=== PATIENT | female | born 1940 | race Two or more races ===

== ENCOUNTER 2018-04-18 09:06 | Outpatient (CLI) | payer MEDICARE, OTHER ==
[~2018-04-18] VITALS: Ht 149.9 cm; Wt 60.8 kg
[~2018-04-18 09:06] MED LIST: ANTIVERT25 MG ORAL; ATORVASTATIN CA10 MG ORAL; GLUCOPHAGE500 MG ORAL; METFORMIN HCL500 M1 PO
[2018-04-18 09:19] VITALS: BP 125/58
[2018-04-18] MEDS ORDERED: depression med (09:26)
[2018-04-18] MEDS ORDERED: [UNRECOGNIZED DRUG - REMARK] (09:26)
--- NOTE | 2018-04-18 16:58 | GI Progress Note ---
Assessment/Plan Problems: (1) Colonoscopy planned SNOMED: [id number] Status: stable Status Narrative Seen with Dr. Segura. Assessment/Plan Colonoscopy scheduled for 04/21/18. - CLD & (Nulytely/Suprep/Movi-Prep) prep instructions given and acknowledged by patient. - NPO @ [place] day prior procedure explained. The patient was seen and examined at bedside and all new and available data was reviewed in the patients chart. I agree with the above findings, impression and plan. (Patient seen earlier today. Signature stamp does not reflect patient encounter time.). - Tone Segura MD Subjective Gastrointestinal/Abdominal: Reports: no symptoms Subjective vertigo 1 month ago, currently taking 2 meds last colonoscopy 2012 - negative findings Objective Last 24 Hour Vital Signs Date Time Temp Pulse Resp B/P (MAP) Pulse Ox O2 Delivery O2 Flow Rate FiO2 04/18/18 09:19 97.8 61 16 125/58 98 97.8 General Appearance: WD/WN, no apparent distress, alert Cardiovascular: normal rate Respiratory/Chest: normal breath sounds, no respiratory distress Abdominal Exam: normal bowel sounds, non tender, soft Extremities: normal range of motion, non-tender Lionel Gaxiola [employer] Apr 18, 2018 16:58
--- NOTE | 2018-04-20 16:22 | GI Initial Consult Note ---
History of Present Illness General Date patient seen: Apr 18, 2018 Time patient seen: 10:00 Reason for Consultation: Colonoscopy Present Illness HPI 77 year of female patient presents today for routine colonoscopy screening. Her last colonoscopy was performed in 2012 with negative findings. The patient has a history of diabetes and vertigo, last episode that occurred approximately 1 month ago in which she was prescribed meclizine. Surgical history of bunionectomy. She denies any other major medical condition. No abdominal pain , constipation or N/V/D. Denies any unintentional weight loss or changes in dietary habits. No signs of abuse or neglect. Patient is not fall risk. Home Meds Reported Medications [depression med ] No Conflict Check 04/18/18 [diziness meds x2 ] No Conflict Check 04/18/18 Metformin Hcl* (METFORMIN HCL*) 500 Mg Tablet, 500 MG PO DAILY, #90 01/03/15 Atorvastatin Calcium* (LIPITOR*) 10 Mg Tablet, 10 MG ORAL 3XW 03/12/13 Discontinued Reported Medications Meclizine Hcl* (ANTIVERT*) 25 Mg Tablet, 25 MG ORAL Q6HR PRN for for dizziness, TAB 01/06/15 Med list reviewed/reconciled: Yes Allergies: Coded Allergies: COCONUT OIL (Unverified Allergy, Intermediate, Rash, 01/04/15) EGG (Unverified Allergy, Intermediate, Rash, 01/04/15) PENICILLINS (Verified Allergy, Intermediate, rash, 03/12/13) Nut Tree (Unverified Allergy, Mild, Rash, 01/04/15) Patient History History Provided By: Patient, Medical Record PMH Narrative See HPI. Pertinent Family History: none Social History: Denies: smoking, alcohol use, drug use, other Review of Systems All Other Systems: negative except mentioned in HPI Physical Exam Vital Signs Date Time Temp Pulse Resp B/P (MAP) Pulse Ox O2 Delivery O2 Flow Rate FiO2 04/18/18 09:19 97.8 61 16 125/58 98 97.8 Sp02 EP Interpretation: reviewed, normal General Appearance: well appearing, no apparent distress, alert Head: normocephalic EENT: PERRL/EOMI, normal ENT inspection Neck: supple Respiratory: normal breath sounds, no respiratory distress Cardiovascular: normal rate Gastrointestinal: normal inspection, non tender, soft, normal bowel sounds, non -distended Rectal: deferred Genitourinary: no CVA tenderness Musculoskeletal: normal inspection, back normal Neurologic: normal inspection, alert, oriented x3, responsive Psychiatric: normal inspection, judgement/insight normal, memory normal Skin: normal inspection, normal color, no rash, warm/dry, palpation normal, well hydrated Lymphatic: normal inspection, no adenopathy GI: Plan Problems: (1) Diabetes (2) Colonoscopy planned (3) Vertigo Plan Colonoscopy scheduled for 04/21/18. - CLD & (Nulytely/Suprep/Movi-Prep) prep instructions given and acknowledged by patient. - NPO @ [place] day prior procedure explained. Discussed with Dr. Segura. Thank you for this patient referral, we will follow. The patient was seen and examined at bedside and all new and available data was reviewed in the patients chart. I agree with the above findings, impression and plan. (Patient seen earlier today. Signature stamp does not reflect patient encounter time.). - MD Khalida Crowe AnhNancy LEUNG Apr 20, 2018 16:22
== END 2018-04-18 09:38 | disposition home or self-care (01) ==
LOC: PAN 09:06
DX: R42 Dizziness and giddiness (principal)
CPT/HCPCS: 99201